=== PATIENT | male | born 1965 | race American Indian/Alaskan Native ===

== ENCOUNTER 2019-06-28 10:04 | Emergency (ER) | payer SELFPAY ==
[2019-06-28 10:31] VITALS: BP 155/100
[2019-06-28 11:54] LABS: Bilirubin,Urine NEG (Negative); Blood,Urine NEG (Negative); Color,Urine Yellow (Yellow); Mucus,Urine FEW /HPF; Protein,Urine <15 mg/dL mg/dL (Negative); Urobilinogen,Urine < 2.0 mg/dL (<2.0); WBC,Urine < 1.0 /HPF (0.0-6.0)
[2019-06-28 12:00] LABS: Hematocrit 45.9 % (35.5-45.6); Hemoglobin 15.5 gm/dl (11.8-15.2); Mean Corpuscular HGB Conc 34 % (32-34); Mean Corpuscular Volume 92 fl (84-94); Platelet Count 192 K/mm3 (140-440)
[2019-06-28] MEDS ORDERED: BUTALB/ACETAMINOPHEN/CAFFEINE TAB PO ONE (12:12)
[2019-06-28 12:17] LABS: BUN/Creatinine Ratio 11; Blood Urea Nitrogen 12 mg/dL (9-20); Hemolysis Index 6
[2019-06-28] MEDS ORDERED: KETOROLAC 60 MG/2 ML INJ IM ONE (12:21)
--- NOTE | 2019-06-28 12:21 | Emergency Department Report ---
{null, ED General Adult HPI - General Chief complaint: Headache Stated complaint: HEADACHE/STOMACH PAIN Time Seen by Provider: 06/28/19 11:32 Source: patient Mode of arrival: Ambulatory Limitations: No Limitations - History of Present Illness Initial comments: 53-year-old -[place] male patient with history of hypertension presents with complaints of headache x2 days and left flank pain times yesterday. Patient rates his current headache as 8/10 in severity and describes it as a all-around squeezing type pain around his head. He denies any vision changes, numbness/tingling/weakness in his limbs, confusion, speech changes, neck pain, or difficulty with ambulation. He states he has not tried any [id number] medication for his headache to this point. He also reports history of kidney stones and admits to urinary frequency. He denies any hematuria, dysuria, or fever. He reports the flank pain that radiates to his left lower quadrant - Related Data Previous Rx's Medication Instructions Recorded Last Taken Type amLODIPine 5 mg PO DAILY 30 Days #30 tab 06/28/19 Unknown Rx Allergies Allergy/AdvReac Type Severity Reaction Status Date / Time No Known Allergies Allergy Unverified 06/28/19 10:19 ED Review of Systems ROS: Stated complaint: HEADACHE/STOMACH PAIN Other details as noted in HPI Constitutional: denies: chills, fever, malaise Eyes: denies: vision change Respiratory: denies: cough, shortness of breath Cardiovascular: denies: chest pain Gastrointestinal: as per HPI. denies: nausea, vomiting, diarrhea, constipation, hematemesis, melena, hematochezia Genitourinary: frequency. denies: urgency, dysuria, hematuria, discharge, testicular pain Skin: denies: rash, lesions Neurological: headache. denies: weakness, numbness, paresthesias Hematological/Lymphatic: denies: swollen glands ED Past Medical Hx - Past Medical History Previous Medical History?: Yes Hx Hypertension: Yes - Surgical History Past Surgical History?: No - Medications Home Medications: Home Medications Medication Instructions Recorded Confirmed Last Taken Type amLODIPine 5 mg PO DAILY 30 Days #30 tab 06/28/19 Unknown Rx ED Physical Exam - General Limitations: No Limitations General appearance: alert, in no apparent distress - Head Head exam: Present: atraumatic, normocephalic - Eye Eye exam: Present: normal appearance, PERRL, EOMI. Absent: scleral icterus - ENT ENT exam: Present: normal exam - Neck Neck exam: Present: normal inspection, full ROM. Absent: tenderness - Respiratory Respiratory exam: Present: normal lung sounds bilaterally. Absent: respiratory distress - Cardiovascular Cardiovascular Exam: Present: regular rate, normal rhythm. Absent: systolic murmur, diastolic murmur, rubs, gallop - GI/Abdominal GI/Abdominal exam: Present: soft, tenderness (Left-sided and left flank), normal bowel sounds. Absent: distended, guarding, rebound, rigid - Extremities Exam Extremities exam: Present: normal inspection - Back Exam Back exam: Present: full ROM, CVA tenderness (L). Absent: paraspinal tenderness, vertebral tenderness - Neurological Exam Neurological exam: Present: alert, oriented X3, normal gait. Absent: motor sensory deficit - Expanded Neurological Exam Expanded Cerebellar function: Finger to Nose: Normal, Heel to Gonzales: Normal, Romberg: Nor mal Sensory exam: Upper Extremity Light Touch: Normal, Lower Extremity Light Touch: Normal Motor strength exam: RUE: 5, LUE: 5, RLE: 5, LLE: 5 - Psychiatric Psychiatric exam: Present: normal affect, normal mood - Skin Skin exam: Present: warm, dry, intact, normal color. Absent: rash ED Course Vital Signs 06/28/19 10:28 Temperature 98.2 F Pulse Rate 55 L Respiratory 20 Rate Blood Pressure 155/100 O2 Sat by Pulse 98 Oximetry ED Medical Decision Making - Lab Data Result diagrams: 06/28/19 11:21 06/28/19 11:21 Lab Results 06/28/19 06/28/19 06/28/19 Range/Units 11:21 11:21 11:21 WBC 2.9 L (4.5-11.0) K/mm3 RBC 5.00 (3.65-5.03) M/mm3 Hgb 15.5 H (11.8-15.2) gm/dl Hct 45.9 H (35.5-45.6) % MCV 92 (84-94) fl MCH 31 (28-32) pg MCHC 34 (32-34) % RDW 14.0 (13.2-15.2) % Plt Count 192 (140-440) K/mm3 Sodium 144 (137-145) mmol/L Potassium 4.7 (3.6-5.0) mmol/L Chloride 106.6 (98-107) mmol/L Carbon Dioxide 25 (22-30) mmol/L Anion Gap 17 mmol/L BUN 12 (9-20) mg/dL Creatinine 1.1 (0.8-1.5) mg/dL Estimated GFR > 60 ml/min BUN/Creatinine Ratio 11 % Glucose 95 (75-100) mg/dL Calcium 9.0 (8.4-10.2) mg/dL Total Bilirubin 0.30 (0.1-1.2) mg/dL Direct Bilirubin < 0.2 (0-0.2) mg/dL AST 22 (5-40) units/L ALT 20 (7-56) units/L Alkaline Phosphatase 65 (35-129) units/L Total Protein 6.4 (6.3-8.2) g/dL Albumin 4.1 (3.9-5) g/dL Albumin/Globulin Ratio 1.8 % Urine Color (Yellow) Urine Turbidity (Clear) Urine pH (5.0-7.0) Ur Specific Empire (1.003-1.030) Urine Protein (Negative) mg/dL Urine Glucose (UA) (Negative) mg/dL Urine Ketones (Negative) mg/dL Urine Blood (Negative) Urine Nitrite (Negative) Urine Bilirubin (Negative) Urine Urobilinogen (<2.0) mg/dL Ur Leukocyte Esterase (Negative) Urine WBC (Auto) (0.0-6.0) /HPF Urine RBC (Auto) (0.0-6.0) /HPF Urine Mucus /HPF 06/28/19 Range/Units 11:36 WBC (4.5-11.0) K/mm3 RBC (3.65-5.03) M/mm3 Hgb (11.8-15.2) gm/dl Hct (35.5-45.6) % MCV (84-94) fl MCH (28-32) pg MCHC (32-34) % RDW (13.2-15.2) % Plt Count (140-440) K/mm3 Sodium (137-145) mmol/L Potassium (3.6-5.0) mmol/L Chloride (98-107) mmol/L Carbon Dioxide (22-30) mmol/L Anion Gap mmol/L BUN (9-20) mg/dL Creatinine (0.8-1.5) mg/dL Estimated GFR ml/min BUN/Creatinine Ratio % Glucose (75-100) mg/dL Calcium (8.4-10.2) mg/dL Total Bilirubin (0.1-1.2) mg/dL Direct Bilirubin (0-0.2) mg/dL AST (5-40) units/L ALT (7-56) units/L Alkaline Phosphatase (35-129) units/L Total Protein (6.3-8.2) g/dL Albumin (3.9-5) g/dL Albumin/Globulin Ratio % Urine Color Yellow (Yellow) Urine Turbidity Clear (Clear) Urine pH 6.0 (5.0-7.0) Ur Specific [place] 1.011 (1.003-1.030) Urine Protein <15 mg/dl (Negative) mg/dL Urine Glucose (UA) Neg (Negative) mg/dL Urine Ketones Neg (Negative) mg/dL Urine Blood Neg (Negative) Urine Nitrite Neg (Negative) Urine Bilirubin Neg (Negative) Urine Urobilinogen < 2.0 (<2.0) mg/dL Ur Leukocyte Esterase Neg (Negative) Urine WBC (Auto) < 1.0 (0.0-6.0) /HPF Urine RBC (Auto) 3.0 (0.0-6.0) /HPF Urine Mucus Few /HPF - Radiology Data Radiology results: report reviewed CT ABDOMEN AND PELVIS WITHOUT CONTRAST HISTORY: Left flank pain. COMPARISON: None TECHNIQUE: Routine abdominal and pelvic CT exam performed without contrast. Lack of intravenous contrast limits evaluation of the vascular and solid organs.. All CT scans at this location are performed using CT dose reduction for ALARA by means of automated exposure control. FINDINGS: CT ABDOMEN: Lung Bases: No significant abnormality. Liver: No significant abnormality. Biliary: No significant abnormality. Spleen: No significant abnormality. Unenlarged. Pancreas: No significant abnormality. Adrenals: No significant abnormality. Kidneys: No stones, pelvocaliectasis, ureterectasis. No perinephric or periureteral stranding. Lymphatics: No lymphadenopathy. Vasculature: Atherosclerotic but nonaneurysmal abdominal aorta. Bowel/Peritoneum: No significant abnormality. No free air. No free fluid. CT PELVIC: : No significant abnormality. Lymphatics: No lymphadenopathy. Osseous Structures: No aggressive appearing osseous lesions. Additional Findings: None IMPRESSION: 1. No acute findings. No findings to explain left flank pain. 2. Mild aortic atherosclerosis. - Medical Decision Making Patient here with complaints of headache x2 days and left flank pain x yesterday. Denies any red flag symptoms. His neuro exam is normal. CBC and CMP are normal. UA is also negative for red blood cells or infection. CT abdomen is negative for acute findings. Patient states he gets similar headaches when his blood pressure is elevated. He reports being diagnosed with hypertension years ago and states that he never has been put on medication due to inadequate follow-up. Patient states his headache has resolved with medications given here in the ED. He is stable and nontoxic-appearing. Recom mend follow-up with primary care within 3 days. We will start patient on amlodipine 5 mg for his blood pressure. Patient given information for Dr. Ovalle. Discussed strict return precautions in great detail with patient who verbalizes understanding. Critical care attestation.: If time is entered above; I have spent that time in minutes in the direct care of this critically ill patient, excluding procedure time. ED Disposition Clinical Impression: Left flank pain, Hypertension, uncontrolled Acute tension headache Qualifiers: Intractability: not intractable Qualified Code(s): G44.209 - Tension-type headache, unspecified, not intractable Disposition: DC-01 TO HOME OR SELFCARE Is pt being admited?: No Condition: Stable Instructions: Amlodipine (By mouth), Tension Headache (ED), Hypertension (ED), Flank Pain (ED) Prescriptions: amLODIPine 5 mg PO DAILY 30 Days #30 tab Referrals: DARSHAN OVALLE MD [Staff Physician] - 2-3 Days Forms: Work/School Release Form(ED) }
--- NOTE | 2019-06-28 13:34 | Cat Scan Report ---
{null, CT ABDOMEN AND PELVIS WITHOUT CONTRAST HISTORY: Left flank pain. COMPARISON: None TECHNIQUE: Routine abdominal and pelvic CT exam performed without contrast. Lack of intravenous cont rast limits evaluation of the vascular and solid organs.. All CT scans at this location are performed using CT dose reduction for ALARA by means of automated exposure control. FINDINGS: CT ABDOMEN: Lung Bases: No significant abnormality. Liver: No significant abnormality. Biliary: No significant abnormality. Spleen: No significant abnormality. Unenlarged. Pancreas: No significant abnormality. Adrenals: No significant abnormality. Kidneys: No stones, pelvocaliectasis, ureterectasis. No perinephric or periureteral stranding. Lymphatics: No lymphadenopathy. Vasculature: Atherosclerotic but nonaneurysmal abdominal aorta. Bowel/Peritoneum: No significant abnormality. No free air. No free fluid. CT PELVIC: : No significant abnormality. Lymphatics: No lymphadenopathy. Osseous Structures: No aggressive appearing osseous lesions. Additional Findings: None IMPRESSION: 1. No acute findings. No findings to explain left flank pain. 2. Mild aortic atherosclerosis. Signer Name: Deng Landers MD Signed: 06/28/2019 1:29 PM Workstation Name: [id number] }
[2019-06-28 13:47] LABS: Alanine Aminotransferase 20 units/L (7-56); Albumin 4.1 g/dL (3.9-5)
[2019-06-28 13:51] LABS: Bilirubin,Direct < 0.2 mg/dL (0-0.2)
== END 2019-06-28 15:52 | disposition home or self-care (01) ==
LOC: ED 10:04
DX: G44.209 Tension-type headache, unspecified, not intractable (principal); R10.32 Left lower quadrant pain; I10 Essential (primary) hypertension; Z79.899 Other long term (current) drug therapy
CPT/HCPCS: 36415; 74176; 80048; 80076; 81001; 85027; 96372; 99284; J1885

== ENCOUNTER 2019-09-15 06:28 | Emergency (ER) | payer SELFPAY ==
[2019-09-15 06:33] VITALS: BP 149/103
[2019-09-15 07:44] LABS: Bilirubin,Urine NEG (Negative); Blood,Urine NEG (Negative); Color,Urine Yellow (Yellow); Mucus,Urine FEW /HPF; Protein,Urine <15 mg/dL mg/dL (Negative); Urobilinogen,Urine < 2.0 mg/dL (<2.0)
--- NOTE | 2019-09-15 08:12 | Emergency Department Report ---
ED General Adult HPI - General Chief complaint: High BP Stated complaint: HPB Time Seen by Provider: 09/15/19 07:20 Source: patient Mode of arrival: Ambulatory Limitations: No Limitations - History of Present Illness Initial comments: 54-year-old well-nourished no acute distress nontoxic -[place] male presents to the emergency room stating that his blood pressure is high because he has had a headache for couple days and is currently out of his blood pressure medicine. Patient also reports left-sided flank pain that he has a history of kidney stones. Patient denies any nausea vomiting or painful urination. Patient states he has lower back pain lower abdominal pain with burning sensation. Patient denies any dysuria denies any penis discharge. Patient does admit that he smokes cigarette does not drink alcohol and smokes weed. Patient denies any illicit drug use. Patient reports he has a past medical history of hypertension and kidney stones. Patient was last seen here in June 28, 2019 and was given a prescription for amlodipine 5 mg. Patient has not followed up as he was instructed. Onset/Timin -: days(s) Location: head Quality: aching Consistency: intermittent Improves with: none Worsens with: none Associated Symptoms: denies other symptoms - Related Data Previous Rx's Medication Instructions Recorded Last Taken Type amLODIPine 5 mg PO DAILY 30 Days #15 tab 09/15/19 Unknown Rx Allergies Allergy/AdvReac Type Severity Reaction Status Date / Time No Known Allergies Allergy Unverified 06/28/19 10:19 ED Review of Systems ROS: Stated complaint: HPB Other details as noted in HPI Comment: All other systems reviewed and negative Constitutional: denies: chills, fever Gastrointestinal: abdominal pain. denies: nausea, diarrhea Genitourinary: denies: urgency, dysuria, frequency, hematuria, discharge, testicular pain, testicular mass ED Past Medical Hx - Past Medical History Hx Hypertension: Yes - Surgical History Past Surgical History?: No - Social History Smoking Status: Current Every Day Smoker Substance Use Type: Cocaine - Medications Home Medications: Home Medications Medication Instructions Recorded Confirmed Last Taken Type amLODIPine 5 mg PO DAILY 30 Days #15 tab 09/15/19 Unknown Rx ED Physical Exam - General Limitations: No Limitations General appearance: alert, in no apparent distress - Head Head exam: Present: atraumatic, normocephalic - Eye Eye exam: Present: normal appearance - ENT ENT exam: Present: mucous membranes moist - Neck Neck exam: Present: normal inspection - Respiratory Respiratory exam: Present: normal lung sounds bilaterally. Absent: respiratory distress - Cardiovascular Cardiovascular Exam: Present: regular rate, normal rhythm. Absent: systolic murmur, diastolic murmur, rubs, gallop - GI/Abdominal GI/Abdominal exam: Present: soft, normal bowel sounds, other (No flank pains no abdominal or pelvic pain) - Rectal Rectal exam: Present: deferred - Extremities Exam Extremities exam: Present: normal inspection - Back Exam Back exam: Present: normal inspection - Neurological Exam Neurological exam: Present: alert, oriented X3, CN II-XII intact, normal gait - Psychiatric Psychiatric exam: Present: normal affect, normal mood - Skin Skin exam: Present: warm, dry, intact, normal color. Absent: rash ED Course Vital Signs 09/15/19 06:32 Temperature 98.1 F Pulse Rate 72 Respiratory 18 Rate Blood Pressure 149/103 O2 Sat by Pulse 98 Oximetry ED Medical Decision Making - Medical Decision Making 54-year-old well-nourished no acute distress nontoxic -Lithuanian male presents to the emergency room stating that his blood pressure is high because he has had a headache for couple days and is currently out of his blood pressure medicine. Patient also reports left-sided flank pain that he has a history of kidney stones. Patient denies any nausea vomiting or painful urination. Patient states he has lower back pain lower abdominal pain with burning sensation. Patient denies any dysuria denies any penis discharge. Patient does admit that he smokes cigarette does not drink alcohol and smokes weed. Patient denies any illicit drug use. Patient reports he has a past medical history of hypertension and kidney stones. Patient was last seen here in June 28, 2019 and was given a prescription for amlodipine 5 mg. Patient has not followed up as he was instructed. Patient has a normal physical examination no concern for kidney stones urine is negative for any WBCs or RBCs no microhematuria. Patient will be discharged home with a prescription for amlodipine 5 mg for 2 weeks and patient is instructed to follow-up with her primary care provider. Critical care attestation.: If time is entered above; I have spent that time in minutes in the direct care of this critically ill patient, excluding procedure time. ED Disposition Clinical Impression: Hypertension, Noncompliance with medication regimen, Flank pain with history of urolithiasis Is pt being admited?: No Does the pt Need Aspirin: No Condition: Stable Instructions: Hypertension (ED) Additional Instructions: You will be given only 2 weeks of blood pressure medication. You need to follow-up with a primary care provider I have listed 1 below for your convenience. Prescriptions: amLODIPine 5 mg PO DAILY 30 Days #15 tab Referrals: PRIMARY MD BALJIT [Primary Care Provider] - 3-5 Days DARSHAN ALVAREZ MD [Staff Physician] - 3-5 Days Forms: Work/School Release Form(ED)
== END 2019-09-15 08:21 ==
LOC: ED 06:28
DX: I10 Essential (primary) hypertension (principal); R10.32 Left lower quadrant pain; F17.200 Nicotine dependence, unspecified, uncomplicated; Z91.14 Patient's other noncompliance with medication regimen; Z87.442 Personal history of urinary calculi; Z79.899 Other long term (current) drug therapy
CPT/HCPCS: 81001; 99283

== ENCOUNTER 2019-10-09 07:08 | Emergency (ER) | payer SELFPAY ==
[2019-10-09 07:21] VITALS: BP 114/71
[2019-10-09] MEDS ORDERED: TETRACAINE 0.5% OPHTH SOLN 4ML OU STA (07:49)
[2019-10-09] MEDS ORDERED: FLUORESCEIN 1 MG STRIP OP ONE (07:49)
--- NOTE | 2019-10-09 08:41 | Emergency Department Report ---
ED Eye Problem HPI - General Chief complaint: Eye Problems Stated complaint: RIGHT EYE PAIN Time Seen by Provider: 10/09/19 07:31 Source: patient Mode of arrival: Ambulatory Limitations: No Limitations - History of Present Illness Initial comments: 54-year-old -Y[place]i male patient with history of hypertension presents with complaints of right eye redness, irritation, and foreign body sensation for the past 3 days. He denies any direct trauma to the eye, headache, pain with eye movements, or vision changes. He rates his current pain as a 7/10 in severity and states that he has sensitivity to light. He denies being a contact lens wear. Patient states it is possible that he did get something in his eye at work a few days ago, however he does not recall any specific incident. Patient also states he is compliant with his blood pressure medication, but he did miss a dose the day his eye became irritated and red. He also reports natasha ting of the eyes shut this morning upon waking. chief complaint: eye redness -: Sudden Onset Description: sudden Location: right eye If Injury: none Eye Symptoms: redness, photophobia - Related Data Previous Rx's Medication Instructions Recorded Last Taken Type amLODIPine 5 mg PO DAILY 30 Days #15 tab 09/15/19 Unknown Rx Acetaminophen/Codeine [Tylenol 1 tab PO Q6H PRN #8 tab 10/09/19 Unknown Rx /Codeine # 3 tab] Erythromycin [Erythromycin Ophth 1 cm OD Q4H 7 Days #1 tube 10/09/19 Unknown Rx Oint] Ibuprofen [Motrin 800 MG tab] 800 mg PO Q8HR PRN #21 tablet 10/09/19 Unknown Rx Allergies Allergy/AdvReac Type Severity Reaction Status Date / Time No Known Allergies Allergy Unverified 06/28/19 10:19 ED Review of Systems ROS: Stated complaint: RIGHT EYE PAIN Other details as noted in HPI ED Past Medical Hx - Past Medical History Previous Medical History?: Yes Hx Hypertension: Yes - Surgical History Past Surgical History?: No - Social History Smoking Status: Never Smoker - Medications Home Medications: Home Medications Medication Instructions Recorded Confirmed Last Taken Type amLODIPine 5 mg PO DAILY 30 Days #15 tab 09/15/19 Unknown Rx Acetaminophen/Codeine [Tylenol 1 tab PO Q6H PRN #8 tab 10/09/19 Unknown Rx /Codeine # 3 tab] Erythromycin [Erythromycin Ophth 1 cm OD Q4H 7 Days #1 tube 10/09/19 Unknown Rx Oint] Ibuprofen [Motrin 800 MG tab] 800 mg PO Q8HR PRN #21 tablet 10/09/19 Unknown Rx ED Physical Exam - General Limitations: No Limitations General appearance: alert, in no apparent distress - Head Head exam: Present: atraumatic, normocephalic - Eye Eye exam: Present: PERRL, other (Corneal abrasion noted around 6 o'clock beneath the iris) - Expanded Eye Exam Expanded Eyelids: Normal Inspection: Right Sclera/Conjunctival: Injection: Right, Hemorrhage: Right (No foreign body or exudate noted; no pain noted with EOMs) ED Course Vital Signs 10/09/19 07:18 Temperature 98 F Pulse Rate 68 Respiratory 17 Rate Blood Pressure 114/71 O2 Sat by Pulse 98 Oximetry ED Medical Decision Making - Medical Decision Making Patient here with complaints of red eye redness, irritation, and foreign body sensation. Subconjunctival hemorrhages noted on exam and corneal abrasion is noted with fluorescein staining. Patient's vitals are normal he is well- appearing. He has no pain with extraocular motions or periorbital swelling/edema or cellulitis noted on exam. No significant abnormalities noted on visual acuity test. He is stable for discharge home and follow-up with ophthalmology. Prescription for erythromycin given along with strict return precautions. Patient states understanding. Critical care attestation.: If time is entered above; I have spent that time in minutes in the direct care of this critically ill patient, excluding procedure time. ED Disposition Clinical Impression: Subconjunctival hemorrhage Qualifiers: Laterality: right Qualified Code(s): H11.31 - Conjunctival hemorrhage, right eye Corneal abrasion Qualifiers: Encounter type: initial encounter Laterality: right Qualified Code(s): S05.01XA - Injury of conjunctiva and corneal abrasion without foreign body, right eye, initial encounter Disposition: TO HOME OR SELFCARE Is pt being admited?: No Condition: Stable Instructions: Subconjunctival Hemorrhage (ED), Corneal Abrasion (ED) Prescriptions: Erythromycin [Erythromycin Ophth Oint] 1 cm OD Q4H 7 Days #1 tube Ibuprofen [Motrin 800 MG tab] 800 mg PO Q8HR PRN #21 tablet PRN Reason: pain Acetaminophen/Codeine [Tylenol /Codeine # 3 tab] 1 tab PO Q6H PRN #8 tab PRN Reason: Pain , Severe (7-10) Referrals: DOUGLAS DAVIS MD [Staff Physician] - 3-5 Days Forms: Work/School Release Form(ED)
== END 2019-10-09 09:14 | disposition home or self-care (01) ==
LOC: ED 07:08
DX: S05.01XA Injury of conjunctiva and corneal abrasion without foreign body, right eye, initial encounter (principal); H11.31 Conjunctival hemorrhage, right eye; X58.XXXA Exposure to other specified factors, initial encounter; Y93.89 Activity, other specified; Y92.89 Other specified places as the place of occurrence of the external cause; Y99.8 Other external cause status

== ENCOUNTER 2020-02-19 06:55 | Emergency (ER) | payer SELFPAY ==
[2020-02-19 07:23] VITALS: BP 123/80
[2020-02-19] MEDS ORDERED: ACETAMINOPHEN 325 MG TAB PO ONE (08:33)
[2020-02-19] MEDS ORDERED: diphenhydrAMINE 25 MG CAP PO ONE (08:34)
[2020-02-19] MEDS ORDERED: METOCLOPRAMIDE 10 MG TAB PO ONE (08:34)
--- NOTE | 2020-02-19 09:04 | Emergency Department Report ---
ED General Adult HPI - General Chief complaint: Eye Problems Stated complaint: BURST BLOOD VESSEL RIGHT EYE, AND HEADACHE Time Seen by Provider: 02/19/20 08:23 Source: patient Mode of arrival: Ambulatory Limitations: No Limitations - History of Present Illness Initial comments: Patient is a 54-year-old male presents emergency room with complaints of some conjunctival hemorrhage of the right eye that occurred 2 days ago. He states that he has had headache also for the last 2 days in the right yazidism region and behind the right eye. He states that he has had this once in the past where he had a headache and subconjunctival hemorrhage but at that time had elevated blood pressure. He states that he has not taken any blood pressure medication in 2 days. He denies any trauma to the eye or getting anything into the eye. He denies any fever, nausea, vomiting, diarrhea, vision changes, numbness, unilateral weakness, CP, SOB. Denies any allergies to medications. Severity scale (0 -10): 4 - Related Data Previous Rx's Medication Instructions Recorded Last Taken Type amLODIPine 5 mg PO DAILY 30 Days #15 tab 09/15/19 Unknown Rx Acetaminophen/Codeine [Tylenol 1 tab PO Q6H PRN #8 tab 10/09/19 Unknown Rx /Codeine # 3 tab] Erythromycin [Erythromycin Ophth 1 cm OD Q4H 7 Days #1 tube 10/09/19 Unknown Rx Oint] Ibuprofen [Motrin 800 MG tab] 800 mg PO Q8HR PRN #21 tablet 10/09/19 Unknown Rx Butalb/Acetaminophen/Caffeine 1 cap PO Q8HR PRN #10 cap 02/19/20 Unknown Rx [Fioricet 50-300-40 mg CAP] Polymyxin B Sulf/Trimethoprim 1 drop OD Q3HR 7 Days #1 drops 02/19/20 Unknown Rx [Polytrim Eye Drops] Allergies Allergy/AdvReac Type Severity Reaction Status Date / Time No Known Allergies Allergy Unverified 06/28/19 10:19 ED Review of Systems ROS: Stated complaint: BURST BLOOD VESSEL RIGHT EYE, AND HEADACHE Other details as noted in HPI Comment: All other systems reviewed and negative ED Past Medical Hx - Past Medical History Hx Hypertension: Yes - Social History Smoking Status: Current Every Day Smoker Substance Use Type: None - Medications Home Medications: Home Medications Medication Instructions Recorded Confirmed Last Taken Type amLODIPine 5 mg PO DAILY 30 Days #15 tab 09/15/19 Unknown Rx Acetaminophen/Codeine [Tylenol 1 tab PO Q6H PRN #8 tab 10/09/19 Unknown Rx /Codeine # 3 tab] Erythromycin [Erythromycin Ophth 1 cm OD Q4H 7 Days #1 tube 10/09/19 Unknown Rx Oint] Ibuprofen [Motrin 800 MG tab] 800 mg PO Q8HR PRN #21 tablet 10/09/19 Unknown Rx Butalb/Acetaminophen/Caffeine 1 cap PO Q8HR PRN #10 cap 02/19/20 Unknown Rx [Fioricet 50-300-40 mg CAP] Polymyxin B Sulf/Trimethoprim 1 drop OD Q3HR 7 Days #1 drops 02/19/20 Unknown Rx [Polytrim Eye Drops] ED Physical Exam - General Limitations: No Limitations General appearance: alert, in no apparent distress - Head Head exam: Present: atraumatic, normocephalic - Eye Eye exam: Present: PERRL, EOMI, other (right eye subconjunctival hemorrhage, no obvious foreign body, small amount of mucus drainage/crusting). Absent: periorbital swelling, periorbital tenderness Pupils: Present: normal accommodation - ENT ENT exam: Present: mucous membranes moist - Respiratory Respiratory exam: Present: normal lung sounds bilaterally. Absent: respiratory distress, wheezes, rales, rhonchi, stridor, chest wall tenderness, accessory muscle use, decreased breath sounds, prolonged expiratory - Cardiovascular Cardiovascular Exam: Present: regular rate, normal rhythm, normal heart sounds. Absent: systolic murmur, diastolic murmur, rubs, gallop - Neurological Exam Neurological exam: Present: alert, oriented X3, CN II-XII intact, normal gait. Absent: motor sensory deficit - Psychiatric Psychiatric exam: Present: normal affect, normal mood - Skin Skin exam: Present: warm, dry, intact ED Course Vital Signs 02/19/20 07:21 Temperature 98.7 F Pulse Rate 61 Respiratory 16 Rate Blood Pressure 123/80 [Right] O2 Sat by Pulse 99 Oximetry ED Medical Decision Making - Medical Decision Making Patient is a 54-year-old male presents emergency room with complaints of some conjunctival hemorrhage of the right eye that occurred 2 days ago. He states that he has had headache also for the last 2 days in the right yazidism region and behind the right eye. He states that he has had this once in the past where he had a headache and subconjunctival hemorrhage but at that time had elevated blood pressure. He states that he has not taken any blood pressure medication in 2 days. He denies any trauma to the eye or getting anything into the eye. He denies any fever, nausea, vomiting, diarrhea, vision changes, numbness, unilateral weakness, CP, SOB. Denies any allergies to medications. vitals are normal. on exam: right eye subconjunctival hemorrhage, no obvious foreign body, small amount of mucus drainage/crusting, PERRLA, EOMI, no focal neuro deficits. Examination does appear consistent with a subconjunctival hemorrhage, there is a small amount of mucus drainage, will cover patient for conjunctivitis as well. Patient given Tylenol, Reglan, Benadryl and his headache improved. Patient was feeling much better and ready to go home. Discussed all findings with patient and advised patient that he would need to follow-up with a primary care physician and a director of nurses registry. Patient given prescription for Polytrim and Fioricet. Advised patient Please use medication as prescribed as needed. Increase your water intake over the neck several days. Please follow-up with your primary care doctor. Please follow-up with a director of nurses registry. Please keep a blood pressure log and take your blood pressure 3 times a day and take this log to the primary care doctor. Eat a low-sodium (low salt) diet. Incorporate 30 to 60 minutes of daily aerobic exercise. Return to emergency room immediately for any new or worsening symptoms. Critical care attestation.: If time is entered above; I have spent that time in minutes in the direct care of this critically ill patient, excluding procedure time. ED Disposition Clinical Impression: Subconjunctival hemorrhage Qualifiers: Laterality: right Qualified Code(s): H11.31 - Conjunctival hemorrhage, right eye Headache Qualifiers: Headache type: unspecified Headache chronicity pattern: acute headache Intractability: not intractable Qualified Code(s): R51.9 - Headache, unspecified Conjunctivitis Qualifiers: Conjunctivitis type: acute Acute conjunctivitis type: unspecified Laterality: right Qualified Code(s): H10.31 - Unspecified acute conjunctivitis, right eye Disposition: - TO HOME OR SELFCARE Is pt being admited?: No Does the pt Need Aspirin: No Condition: Stable Instructions: Conjunctivitis (ED), Subconjunctival Hemorrhage (ED), Acute Headache (ED) Additional Instructions: Please use medication as prescribed as needed. Increase your water intake over the neck several days. Please follow-up with your primary care doctor. Please follow-up with a director of nurses registry. Please keep a blood pressure log and take your blood pressure 3 times a day and take this log to the primary care doctor. Eat a low-sodium (low salt) diet. Incorporate 30 to 60 minutes of daily aerobic exercise. Return to emergency room immediately for any new or worsening symptoms. Prescriptions: Butalb/Acetaminophen/Caffeine [Fioricet 50-300-40 mg CAP] 1 cap PO Q8HR PRN #10 cap PRN Reason: headache Polymyxin B Sulf/Trimethoprim [Polytrim Eye Drops] 1 drop OD Q3HR 7 Days #1 drops Referrals: PRIMARY CAREMD [Primary Care Provider] - 2-3 Days DARSHAN ALVAREZ MD [Staff Physician] - 2-3 Days [facility] [Provider Group] - 2-3 Days [facility] [Provider Group] - 2-3 Days Time of Disposition: 09:03 Print Language: SAUDI ARABIAN
== END 2020-02-19 09:17 | disposition home or self-care (01) ==
LOC: ED 06:55
DX: H11.31 Conjunctival hemorrhage, right eye (principal); H10.31 Unspecified acute conjunctivitis, right eye; R51.9 Headache, unspecified; I10 Essential (primary) hypertension; F17.200 Nicotine dependence, unspecified, uncomplicated; Z79.899 Other long term (current) drug therapy
CPT/HCPCS: 99282

== ENCOUNTER 2021-03-28 07:28 | Emergency (ER) | payer SELFPAY ==
[2021-03-28 07:34] VITALS: BP 135/96
--- NOTE | 2021-03-28 07:49 | Emergency Department Report ---
ED General Adult HPI - General Chief complaint: High BP Stated complaint: HIGH BLOOD PRESSURE PUI?: No Time Seen by Provider: 03/28/21 07:48 Source: patient, family Mode of arrival: Ambulatory Limitations: No Limitations - History of Present Illness Initial comments: 55-year-old male with a past medical history of hypertension presents to the ER today with complaints of elevated blood pressure, left arm pain and headache. Patient states that he has a known history of hypertension. He thinks he used to be on lisinopril for his hypertension. He admits that he has not been taking any of his blood pressure medication for the past 3 months because he has no primary care doctor and he states that at the time he was out of work and did not have the financial capability or insurance to follow-up. Patient states that over the past 3 to 4 days has been having this constant diffuse headache, and then yesterday noticed this dull achy intermittent pain to his left upper extremity. Patient states that he checked his blood pressure and it was high and so decided to come to the ER to get checked out. He states that the pain in his upper extremity was reproducible with movement. He states that the pain is left upper extremity now is better. He has not taken any [id number] medication for it. He denies any recent injury to his left upper extremity. 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 He denies any associated chest pain, shortness of breath, nausea, vomiting, fever, chills, back pain or abdominal pain. Other than the hypertension he does have a history of tobacco use. He denies any significant past medical history MD Complaint: Elevated BP/Left arm pain/Headache -: days(s) (1), This morning - Related Data Previous Rx's Medication Instructions Recorded Last Taken Type Acetaminophen/Codeine [Tylenol 1 tab PO Q6H PRN #8 tab 10/09/19 Unknown Rx /Codeine # 3 tab] Erythromycin [Erythromycin Ophth 1 cm OD Q4H 7 Days #1 tube 10/09/19 Unknown Rx Oint] Ibuprofen [Motrin 800 MG tab] 800 mg PO Q8HR PRN #21 tablet 10/09/19 Unknown Rx Butalb/Acetaminophen/Caffeine 1 cap PO Q8HR PRN #10 cap 02/19/20 Unknown Rx [Fioricet 50-300-40 mg CAP] Polymyxin B Sulf/Trimethoprim 1 drop OD Q3HR 7 Days #1 drops 02/19/20 Unknown Rx [Polytrim Eye Drops] amLODIPine 5 mg PO DAILY 30 Days #15 tab 03/28/21 Unknown Rx Allergies Allergy/AdvReac Type Severity Reaction Status Date / Time No Known Allergies Allergy Verified 03/28/21 07:29 ED Review of Systems ROS: Stated complaint: HIGH BLOOD PRESSURE Other details as noted in HPI Comment: All other systems reviewed and negative Constitutional: denies: chills, fever Eyes: denies: eye pain, eye discharge, vision change ENT: denies: ear pain, throat pain, dental pain, hearing loss, epistaxis, congestion Respiratory: denies: cough, shortness of breath, SOB with exertion, SOB at rest, wheezing Cardiovascular: denies: chest pain, palpitations, dyspnea on exertion, edema, syncope, paroxysmal nocturnal dyspnea Gastrointestinal: denies: abdominal pain, nausea, vomiting, diarrhea, constipation, hematemesis, hematochezia Genitourinary: denies: urgency, dysuria, frequency, hematuria, discharge, testicular pain, testicular mass Musculoskeletal: arthralgia. denies: back pain, joint swelling, myalgia Skin: denies: rash, lesions, change in color, change in hair/nails, pruritus Neurological: headache. denies: numbness, paresthesias, confusion, abnormal gait, vertigo, other Psychiatric: denies: anxiety, depression, auditory hallucinations, visual hallucinations, homicidal thoughts, suicidal thoughts Hematological/Lymphatic: denies: easy bleeding, swollen glands ED Past Medical Hx - Past Medical History Hx Hypertension: Yes - Surgical History Past Surgical History?: No - Social History Smoking Status: Current Every Day Smoker Substance Use Type: None - Medications Home Medications: Home Medications Medication Instructions Recorded Confirmed Last Taken Type Acetaminophen/Codeine [Tylenol 1 tab PO Q6H PRN #8 tab 10/09/19 Unknown Rx /Codeine # 3 tab] Erythromycin [Erythromycin Ophth 1 cm OD Q4H 7 Days #1 tube 10/09/19 Unknown Rx Oint] Ibuprofen [Motrin 800 MG tab] 800 mg PO Q8HR PRN #21 tablet 10/09/19 Unknown Rx Butalb/Acetaminophen/Caffeine 1 cap PO Q8HR PRN #10 cap 02/19/20 Unknown Rx [Fioricet 50-300-40 mg CAP] Polymyxin B Sulf/Trimethoprim 1 drop OD Q3HR 7 Days #1 drops 02/19/20 Unknown Rx [Polytrim Eye Drops] amLODIPine 5 mg PO DAILY 30 Days #15 tab 03/28/21 Unknown Rx ED Physical Exam - General Limitations: No Limitations General appearance: alert, in no apparent distress - Head Head exam: Present: atraumatic, normocephalic, normal inspection - Eye Eye exam: Present: normal appearance, PERRL, EOMI Pupils: Present: normal accommodation - ENT ENT exam: Present: normal exam, mucous membranes moist, TM's normal bilaterally - Neck Neck exam: Present: normal inspection, full ROM - Respiratory Respiratory exam: Present: normal lung sounds bilaterally. Absent: respiratory distress, wheezes, rales, rhonchi - Cardiovascular Cardiovascular Exam: Present: regular rate, normal rhythm, normal heart sounds - GI/Abdominal GI/Abdominal exam: Present: soft. Absent: distended, tenderness, guarding, rebound - Extremities Exam Extremities exam: Present: other (Mild ttp anterior left shoulder. ROM of shoulder normal. No swelling LUE, no bruising or erythema. N/v intact LUE. ) - Neurological Exam Neurological exam: Present: alert, oriented X3, CN II-XII intact, normal gait ED Course Vital Signs 03/28/21 03/28/21 07:34 10:39 Temperature 98.4 F Pulse Rate 76 56 L Respiratory 20 Rate Blood Pressure 135/96 O2 Sat by Pulse 96 Oximetry ED Medical Decision Making - EKG Data EKG shows normal: sinus rhythm Rate: normal (61) - EKG Data Interpretation: no acute changes - Radiology Data Radiology results: report reviewed No acute findings - Medical Decision Making cxr shows nothing acute trop normal EKG shows no STEMI, acute ischemic changes or significant dysrhythmias. Patient blood pressure only mildly elevated. Patient currently not toxic, not in any distress, he is awake alert oriented x3, he is neurologically intact and with a normal gait. Suspect that the pain in his left arm more likely related to his left shoulder, as he does have reproducible pain on palpation to his left shoulder. Very low suspicion for unstable angina, PE, aortic dissection, upper extremity DVT, acute compartment syndrome upper extremity, or any other acute emergent conditions warranting any additional testing, admission or specialist consult at this time. Discussed all results with patient. He will be restarted on his amlodipine which is what he had been prescribed before based on his past visits. Patient recommended to take Tylenol and ibuprofen for his arm pain but he was given referral to local PCP for continued management of his high blood pressure and possible referral to Ortho if his shoulder pain continues. Patient expressed understanding of all instructions and agree with plan. Patient stable at time of discharge. Critical care attestation.: If time is entered above; I have spent that time in minutes in the direct care of this critically ill patient, excluding procedure time. ED Disposition Clinical Impression: Left shoulder pain, Hypertension, Nonadherence to medication Disposition: 01 HOME / SELF CARE / HOMELESS Is pt being admited?: No Does the pt Need Aspirin: No Condition: Stable Instructions: Shoulder Pain, Managing Your Hypertension, Hypertension (ED) Additional Instructions: I recommend taking tylenol and ibuprofen as prescribed for pain. Start taking the amlodipine for your blood pressure as prescribed and start taking it today. I do recommend that you follow-up with the primary care doctor listed on your discharge instructions for continued monitoring of your high blood pressure. Return to the ER if your symptoms changes or worsens in any way. Prescriptions: amLODIPine 5 mg PO DAILY 30 Days #15 tab Referrals: DARSHAN ALVAREZ MD [Staff Physician] - 3-5 Days Forms: Work/School Release Form(ED) Time of Disposition: 10:29
--- NOTE | 2021-03-28 09:58 | XRay Report ---
CHEST 2 VIEWS INDICATION / CLINICAL INFORMATION: difficulty breathing. COMPARISON: None available. FINDINGS: SUPPORT DEVICES: None. HEART / MEDIASTINUM: No significant abnormality. LUNGS / PLEURA: No significant pulmonary or pleural abnormality. No pneumothorax. ADDITIONAL FINDINGS: No significant additional findings. IMPRESSION: 1. No acute findings. Signer Name: Deng Landers MD Signed: 03/28/2021 9:54 AM Workstation Name: [id number]
--- NOTE | 2021-03-28 11:46 | Electrocardiograph Report ---
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
== END 2021-03-28 10:40 | disposition home or self-care (01) ==
LOC: ED 07:28
DX: I10 Essential (primary) hypertension (principal); M25.512 Pain in left shoulder; F17.200 Nicotine dependence, unspecified, uncomplicated; Z91.14 Patient's other noncompliance with medication regimen
CPT/HCPCS: 36415; 71046; 84484; 93005; 99284

== ENCOUNTER 2021-03-31 07:32 | Emergency (ER) | payer SELFPAY ==
[2021-03-31 07:40] VITALS: BP 106/70
[2021-03-31] MEDS ORDERED: METOCLOPRAMIDE 10 MG/2 ML INJ IV ONE (07:48)
[2021-03-31] MEDS ORDERED: diphenhydrAMINE 50 MG/ML VIAL IV ONE (07:48)
[2021-03-31] MEDS ORDERED: SODIUM CHLORIDE 0.9% 1000 ML 1,000 ML IV ONE (07:48)
--- NOTE | 2021-03-31 07:50 | Emergency Department Report ---
ED General Adult HPI - General Chief complaint: Headache Stated complaint: headache PUI?: No Time Seen by Provider: 03/31/21 07:38 Source: patient Mode of arrival: Ambulatory Limitations: No Limitations - History of Present Illness Initial comments: 55-year-old male with a past medical history of hypertension and tobacco use presents to the ER today with complaints of bitemporal headache and left shoulder pain. Patient states that he has been having the bitemporal headaches off and on for about 1 week, but he states that it became constant 2 days ago. He described as a sharp achy pain. He has not been taking anything for the headache. He states that light seems to make it worse. He denies any nausea, vomiting, fever, chills, neck pain, vision changes, speech changes, focal weakness, numbness or tingling. He states that he has had similar headaches in the past, but they have never lasted this long. He denies any recent head injury. He denies any illicit drug use or alcohol abuse Patient also complains of pain in his left arm but mainly in left shoulder which he describes as a stiffness, and seems to be worse when he tries to move that shoulder. He states that has been intermittent pain since last week. 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 He denies any associated chest pain, shortness of breath, numbness or tingling in the left arm. Patient was seen here 3 days ago for similar symptoms of headache and left arm pain. At the time patient had not been compliant with his high blood pressure medication, and he felt like it was related to his high blood pressure. Patient was given refill on his amlodipine. He had a EKG and troponin that day which were both negative, it was felt that his arm pain was more related to his left shoulder as he had reproducible tenderness to palpation to the left shoulder. Patient was discharged home in stable condition with instructions to follow-up with PCP and transitional living specialist. Patient states that since leaving the hospital he has not had a chance to make an appointment PCP or transitional living specialist. He states that he has been taking his amlodipine but he has not been taking anything for the shoulder pain or headache. MD Complaint: Headache/Left shoulder pain -: week(s) - Related Data Previous Rx's Medication Instructions Recorded Last Taken Type Acetaminophen/Codeine [Tylenol 1 tab PO Q6H PRN #8 tab 10/09/19 Unknown Rx /Codeine # 3 tab] Erythromycin [Erythromycin Ophth 1 cm OD Q4H 7 Days #1 tube 10/09/19 Unknown Rx Oint] Polymyxin B Sulf/Trimethoprim 1 drop OD Q3HR 7 Days #1 drops 02/19/20 Unknown Rx [Polytrim Eye Drops] amLODIPine 5 mg PO DAILY 30 Days #15 tab 03/28/21 Unknown Rx Butalb/Acetaminophen/Caffeine 1 cap PO Q8HR PRN #10 cap 03/31/21 Unknown Rx [Fioricet 50-300-40 mg CAP] Ibuprofen [Motrin 800 MG tab] 800 mg PO Q8HR PRN #21 tablet 03/31/21 Unknown Rx Allergies Allergy/AdvReac Type Severity Reaction Status Date / Time No Known Allergies Allergy Verified 03/28/21 07:29 ED Review of Systems ROS: Stated complaint: headache Other details as noted in HPI Comment: All other systems reviewed and negative Constitutional: denies: chills, diaphoresis, fever, malaise, weakness Eyes: denies: eye pain, eye discharge, vision change ENT: denies: ear pain, throat pain, dental pain, hearing loss, epistaxis, congestion Respiratory: denies: cough, shortness of breath, SOB with exertion, SOB at rest, wheezing Cardiovascular: denies: chest pain, palpitations Gastrointestinal: denies: abdominal pain, nausea, vomiting, diarrhea, constipation, hematemesis, melena, hematochezia Genitourinary: denies: urgency, dysuria, frequency, hematuria, discharge, testicular pain, testicular mass Musculoskeletal: arthralgia. denies: back pain, joint swelling, myalgia Skin: denies: rash, lesions, change in hair/nails, pruritus Neurological: headache. denies: weakness, numbness, paresthesias, confusion, abnormal gait, vertigo Psychiatric: denies: anxiety, depression, auditory hallucinations, visual hallucinations, homicidal thoughts, suicidal thoughts Hematological/Lymphatic: denies: easy bleeding, easy bruising, swollen glands ED Past Medical Hx - Past Medical History Hx Hypertension: Yes - Social History Smoking Status: Current Every Day Smoker Substance Use Type: None - Medications Home Medications: Home Medications Medication Instructions Recorded Confirmed Last Taken Type Acetaminophen/Codeine [Tylenol 1 tab PO Q6H PRN #8 tab 10/09/19 Unknown Rx /Codeine # 3 tab] Erythromycin [Erythromycin Ophth 1 cm OD Q4H 7 Days #1 tube 10/09/19 Unknown Rx Oint] Polymyxin B Sulf/Trimethoprim 1 drop OD Q3HR 7 Days #1 drops 02/19/20 Unknown Rx [Polytrim Eye Drops] amLODIPine 5 mg PO DAILY 30 Days #15 tab 03/28/21 Unknown Rx Butalb/Acetaminophen/Caffeine 1 cap PO Q8HR PRN #10 cap 03/31/21 Unknown Rx [Fioricet 50-300-40 mg CAP] Ibuprofen [Motrin 800 MG tab] 800 mg PO Q8HR PRN #21 tablet 03/31/21 Unknown Rx ED Physical Exam - General Limitations: No Limitations ED Course Vital Signs 03/31/21 07:39 Temperature 97.5 F L Pulse Rate 68 Respiratory 16 Rate Blood Pressure 106/70 [Right] O2 Sat by Pulse 99 Oximetry ED Medical Decision Making - Lab Data Result diagrams: 03/31/21 07:52 03/31/21 07:52 - Radiology Data Radiology results: report reviewed Patient: BETTYE GUERRERO MR#: [id number] : 1965 Acct:[id number] Age/Sex: 55 / M ADM Date: 03/31/21 Loc: ED Attending Dr: Ordering Physician: LETTY DAVILA Date of Service: 03/31/21 Procedure(s): XR shoulder 2+V LT Accession Number(s): [id number] cc: LETTY DAVILA Fluoro Time In Minutes: Left shoulder 3 views INDICATION: Shoulder pain FINDINGS: Mild degenerative change within the AC joint. Mild degenerative ch ignacio of greater tuberosity. No acute fracture or dislocation is seen. Scapula appears normal. Signer Name: Grayson Owens MD Signed: 03/31/2021 8:49 AM Workstation Name: [id number] Transcribed By: DAYO Dictated By: JOSH OWENS MD Electronically Authenticated By: JOSH OWENS MD Signed Date/Time: 03/31/21848 DD/ 7 TD/TT: - Medical Decision Making Patient was seen here about 3 days ago for similar. Given that it was second visit, additional work up was done today. All work up reviewed -- CBC and CMP unremarkable. TRop again negative. EKG today shows no acute abnormality and no apparent change to EKG from 3 [address] His Head CT negative. Xray of left shoulder shows DJD. Patient currently resting comfortably. His symptoms improved after IV fluids and meds. He is neurologically intact and his gait is normal. He is not toxic or ill-appearing. His vital signs are stable. Discussed all results including labs and imaging results with patient. Very low suspicion for TIA/CVA, meningitis, unstable angina, sepsis, or any other emergent conditions warranting admission or specialist consult at this time. She will be given referral to local transitional living specialist for his left shoulder pain, as well as primary care doctor for continued evaluation and possible referral to neurology for his headaches. Patient expressed understanding of all instructions and agree with plan. Patient was stable at time of discharge. Critical care attestation.: If time is entered above; I have spent that time in minutes in the direct care of this critically ill patient, excluding procedure time. ED Disposition Clinical Impression: Left shoulder pain, Headache, DJD of left shoulder Disposition: 01 HOME / SELF CARE / HOMELESS Is pt being admited?: No Does the pt Need Aspirin: No Condition: Stable Instructions: General Headache Without Cause, Shoulder Pain, [id number] Additional Instructions: I recommend you take the Fioricet as prescribed to help with your headaches as well as ibuprofen for headache and shoulder pain. It is important that you follow-up with the transitional living specialist listed on discharge instruction for further evaluation of your shoulder pain. I also recommend following up with primary care doctor listed on your discharge instructions. Return to the ER if your symptoms changes or worsens in any way. Prescriptions: Butalb/Acetaminophen/Caffeine [Fioricet 50-300-40 mg CAP] 1 cap PO Q8HR PRN #10 cap PRN Reason: headache Ibuprofen [Motrin 800 MG tab] 800 mg PO Q8HR PRN #21 tablet PRN Reason: pain Referrals: [facility] [Provider Group] - 3-5 Days MARTITA HURD MD [Staff Physician] - 3-5 Days Forms: Work/School Release Form(ED) Time of Disposition: 09:44 Print Language: HUNGARIAN
[2021-03-31 08:03] LABS: Basophils % (Auto) 1.4 % (0.0-1.8); Eosinophils # (Auto) 0.1 K/mm3 (0.0-0.4); Eosinophils % (Auto) 2.2 % (0.0-4.3); Hematocrit 44.3 % (35.5-45.6); Hemoglobin 14.6 gm/dl (11.8-15.2); Lymphocytes # (Auto) 1.1 K/mm3 (1.2-5.4); Mean Corpuscular HGB Conc 33 % (32-34); Mean Corpuscular Volume 94 fl (84-94); Monocytes # (Auto) 0.3 K/mm3 (0.0-0.8); Monocytes % (Auto) 8.8 % (0.0-7.3); Platelet Count 215 K/mm3 (140-440); Red Blood Count 4.73 M/mm3 (3.65-5.03)
[2021-03-31 08:25] LABS: Alanine Aminotransferase 27 units/L (7-56); Albumin 4.1 g/dL (3.9-5); BUN/Creatinine Ratio 15; Blood Urea Nitrogen 17 mg/dL (9-20); Calcium 8.7 mg/dL (8.4-10.2); Hemolysis Index 17
--- NOTE | 2021-03-31 08:53 | XRay Report ---
Left shoulder 3 views INDICATION: Shoulder pain FINDINGS: Mild degenerative change within the AC joint. Mild degenerative change of greater tuberosit y. No acute fracture or dislocation is seen. Scapula appears normal. Signer Name: Grayson Owens MD Signed: 03/31/2021 8:49 AM Workstation Name: [id number]
--- NOTE | 2021-03-31 09:04 | Cat Scan Report ---
CT HEAD WITHOUT CONTRAST INDICATION / CLINICAL INFORMATION: Headache. TECHNIQUE: Axial imaging performed from the skull apex through the skull base without the use of cont rast. Sagittal and coronal reformatted images. All CT scans at this location are performed using CT dose reduction for ALARA by means of automated exposure control. COMPARISON: None available. FINDINGS: CEREBRAL PARENCHYMA: No significant abnormality. No acute territorial infarct. HEMORRHAGE: None. EXTRA-AXIAL SPACES: Normal in size and morphology for the patient's age. VENTRICULAR SYSTEM: Normal in size and morphology for the patient's age. MIDLINE SHIFT OR HERNIATION: None. CEREBELLUM / BRAINSTEM: No significant abnormality. CALVARIUM: No significant abnormality. ORBITS: Normal as visualized. PARANASAL SINUSES / MASTOID AIR CELLS: Normal as visualized. SOFT TISSUES of HEAD: No significant abnormality. ADDITIONAL FINDINGS: None. IMPRESSION: No acute intracranial abnormality. Cranial CT scan within normal limits. Signer Name: Denis Shepherd Jr, MD Signed: 03/31/2021 8:59 AM Workstation Name: [id number]
--- NOTE | 2021-04-01 18:29 | Electrocardiograph Report ---
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
== END 2021-03-31 10:02 | disposition home or self-care (01) ==
LOC: ED 07:32
DX: M19.012 Primary osteoarthritis, left shoulder (principal); R51.9 Headache, unspecified; I10 Essential (primary) hypertension; F17.200 Nicotine dependence, unspecified, uncomplicated
CPT/HCPCS: 36415; 70450; 73030; 80053; 84484; 85025; 93005; 96361; 96374; 96375; 99284; J1200; J2765; J7030; Q0162

== ENCOUNTER 2021-05-20 13:21 | Emergency (ER) | payer SELFPAY | END 2021-05-20 16:05 | disposition left against medical advice (07) | LOC: ED 13:21 | DX: R53.83 Other fatigue (principal); Z53.21 Procedure and treatment not carried out due to patient leaving prior to being seen by health care provider ==

== ENCOUNTER 2022-02-05 16:06 | Emergency (ER) | payer SELFPAY ==
[2022-02-05 16:57] VITALS: BP 127/092
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
[2022-02-05 21:04] LABS: Basophils # (Auto) 0.1 K/mm3 (0.0-0.1); Basophils % (Auto) 1.3 % (0.0-1.8); Eosinophils # (Auto) 0.1 K/mm3 (0.0-0.4); Eosinophils % (Auto) 1.4 % (0.0-4.3); Hematocrit 45.2 % (35.5-45.6); Hemoglobin 14.9 gm/dl (11.8-15.2); Lymphocytes # (Auto) 1.8 K/mm3 (1.2-5.4); Mean Corpuscular HGB Conc 33 % (32-34); Mean Corpuscular Volume 93 fl (84-94); Monocytes # (Auto) 0.3 K/mm3 (0.0-0.8); Platelet Count 221 K/mm3 (140-440); Red Blood Count 4.87 M/mm3 (3.65-5.03); Red Cell Distribution Width 13.9 % (13.2-15.2)
[2022-02-05 21:46] LABS: Alanine Aminotransferase 28 units/L (7-56); Albumin 4.7 g/dL (3.9-5); BUN/Creatinine Ratio 13; Blood Urea Nitrogen 15 mg/dL (9-20); Calcium 9.8 mg/dL (8.4-10.2); Hemolysis Index 5
== END 2022-02-05 23:00 | disposition left against medical advice (07) ==
LOC: ED 16:06
DX: T30.0 Burn of unspecified body region, unspecified degree (principal); Z53.21 Procedure and treatment not carried out due to patient leaving prior to being seen by health care provider
CPT/HCPCS: 71046; 80053; 82550; 85025